=== PATIENT | female | born 1975 | race Caucasian/White ===

== ENCOUNTER 2018-11-20 17:49 | Emergency (ER) | payer SELFPAY ==
[~2018-11-20] VITALS: Ht 162.6 cm; Wt 63.5 kg
[2018-11-20 18:11] VITALS: BP 113/76
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
[2018-11-20] MEDS ORDERED: LORazepam Inj 2mg/ml 1ml IV ONE (18:30)
[2018-11-20] MEDS ORDERED: Neosporin Oint Ud Pkt TOPIC ONE (18:30)
[2018-11-20] MEDS ORDERED: Ketorolac 30mg Inj IV ONE (18:30)
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
--- NOTE | 2018-11-20 18:50 | NUR ---
ED Nurse Note: pt was medicated as ordered, pt stated that she is not . pt able to tolerate meds. will continue to monitor.
[2018-11-20 18:56] LABS: APPEARANCE,URINE CLEAR; BILIRUBIN, URINE NEGATIVE (NEGATIVE); COLOR,URINE PALE YELLOW; GLUCOSE, URINE (UA) NEGATIVE (NEGATIVE); KETONES,URINE NEGATIVE (NEGATIVE); LEUKOCYTE ESTERASE ,URINE 1+ (NEGATIVE); NITRITE,URINE NEGATIVE (NEGATIVE); PH,URINE 5 (4.5-8.0); PROTEIN,URINE NEGATIVE (NEGATIVE); UROBILINOGEN,URINE NORMAL MG/DL (0.0-1.0)
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
[2018-11-20 19:03] LABS: BASOPHILS % (AUTO) 0.6 % (0.0-2.0); EOSINOPHILS % (AUTO) 0.1 % (0.0-3.0); HEMOGLOBIN 13.3 G/DL (12.0-16.0); LYMPHOCYTES % (AUTO) 20.4 % (20.0-45.0); MEAN CORPUSCULAR VOLUME 85 FL (80-99); MONOCYTES % (AUTO) 5.1 % (1.0-10.0); NEUTROPHILS % (AUTO) 73.8 % (45.0-75.0); PLATELET COUNT 237 K/UL (150-450); RED BLOOD COUNT 4.46 M/UL (4.20-5.40); RED CELL DISTRIBUTION WIDTH 11.1 % (11.6-14.8); WHITE BLOOD COUNT 9.8 K/UL (4.8-10.8)
[2018-11-20 19:10] LABS: ANION GAP 12 mmol/L (5-15); BLOOD UREA NITROGEN 15 mg/dL (7-18); CALCIUM 9.4 MG/DL (8.5-10.1); CARBON DIOXIDE 23 MMOL/L (21-32); CHLORIDE 105 MMOL/L (98-107); CREATININE 0.7 MG/DL (0.55-1.30); POTASSIUM 3.7 MMOL/L (3.5-5.1); SODIUM 140 MMOL/L (136-145)
[2018-11-20 19:14] LABS: ALANINE AMINOTRANSFERASE 28 U/L (12-78); ALBUMIN 4.3 G/DL (3.4-5.0); ALBUMIN/GLOBULIN RATIO 1.4 (1.0-2.7); ALKALINE PHOSPHATASE 55 U/L (46-116); ASPARTATE AMINO TRANSFERASE 21 U/L (15-37); BILIRUBIN,TOTAL 0.4 MG/DL (0.2-1.0); CREATINE KINASE 92 U/L (26-308)
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
[2018-11-20] MEDS ORDERED: IBUPROFEN600 MG ORAL (19:52)
[2018-11-20] MEDS ORDERED: BACITRACIN15 GM TOPIC (19:52)
[2018-11-20 20:00] VITALS: BP 119/83
[2018-11-20 20:05] VITALS: BP 119/83
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
== END 2018-11-20 20:05 | disposition home or self-care (01) ==
LOC: EMR 19:15
DX: S20.219A Contusion of unspecified front wall of thorax, initial encounter (principal); S20.319A Abrasion of unspecified front wall of thorax, initial encounter; Y04.2XXA Assault by strike against or bumped into by another person, initial encounter; Y92.9 Unspecified place or not applicable
CPT/HCPCS: 36415; 71045; 80053; 81003; 81025; 82550; 85025; 93005; 96374; 96375; 99284; J1885; J2405; J7040